=== PATIENT | male | born 1940 | race Hispanic/Latino ===

== ENCOUNTER → 2018-01-03 | Outpatient (CLI) | payer MEDICARE ==
[~2018-01-03] MED LIST: CYCLOBENZAPRINE10 MG PO; DOXAZOSIN MESYLA4 MG PO; FINASTERIDE5 MG PO; FUROSEMIDE20 MG PO; FUROSEMIDE40 MG PO; GABAPENTIN100 MG PO; LANTUS100 UNIT/1 SQ; SODIUM BICARBONATE PO; TYLENOL ARTHRITIS PO; VERAPAMIL HCL120 MG PO
--- NOTE | 2018-01-03 16:02 | Diagnostic Imaging Report ---
TECHNIQUE: Magnetic resonance imaging of the LEFT foot (hindfoot) was performed WITHOUT injected contrast. HISTORY: Diabetes, ulcer, rule out osteomyelitis COMPARISON: Left calcaneal radiographs December 15, 2017. DISCUSSION: Bone: No focal or infiltrative bone marrow replacing abnormality. No acute fracture or osteonecrosis. Small plantar calcaneal and dorsal calcaneal enthesophytes. A 1.3 cm calcaneal intraosseous cyst extending from the adjacent sinus tarsi. A 1.2 cm intraosseous cyst within the distal fibular meta-epiphysis. Joints: High-grade to full-thickness erosion of the medial tibiotalar cartilage. No effusion. Soft Tissues: Dorsal soft tissue defect with moderate regional soft tissue edema. No drainable fluid collection. IMPRESSION: 1. No osteomyelitis. 2. No soft tissue abscess. Signed by: Dr. Aj Morales D.O., M.M.M. on 01/03/2018 3:59 PM
== END ==
LOC: MRI 13:20
PROVIDERS: ATTEND Family Medicine
DX: E11.621 Type 2 diabetes mellitus with foot ulcer (principal)

== ENCOUNTER 2018-01-05 09:58 | Outpatient (RCR) | payer MEDICARE ==
--- NOTE | 2017-12-15 12:13 | Diagnostic Imaging Report ---
PROCEDURE:X-RAY LEFT HEEL COMPARISON:None. INDICATIONS:HEEL PAIN, ULCER FINDINGS: BONES: Normal mineralization. No acute fracture or dislocation. Mild degenerative changes of the tibiotalar and talonavicular joints. No suspicious cortical erosion. SOFT TISSUES:Small plantar calcaneal enthesophyte. Achilles tendon enthesopathy. OTHER:Extensive vascular calcifications. No radiopaque foreign body. CONCLUSION: 1. No acute osseous abnormality. If concern for osteomyelitis, consider further evaluation with MRI examination. 2. Plantar calcaneal enthesophyte. Zenaida Salguero M.D. Dictated by: Zenaida Salguero M.D. on 12/15/2017 at 12:14 Electronically approved by: Zenaida Salguero M.D. on 12/15/2017 at 12:14
[~2018-01-05 09:58] MED LIST changes: +LIDOCAINE VISC 2% SOLN 15 ML UDC ONE
== END 2018-01-08 ==
LOC: WCC 09:58
PROVIDERS: ATTEND Family Medicine
DX: E11.621 Type 2 diabetes mellitus with foot ulcer (principal); E11.22 Type 2 diabetes mellitus with diabetic chronic kidney disease; L97.423 Non-pressure chronic ulcer of left heel and midfoot with necrosis of muscle; I73.89 Other specified peripheral vascular diseases; G90.09 Other idiopathic peripheral autonomic neuropathy; N18.4 Chronic kidney disease, stage 4 (severe); I10 Essential (primary) hypertension; E78.5 Hyperlipidemia, unspecified; Z74.01 Bed confinement status
CPT/HCPCS: 36415; 82948; 87071; 87075; 87186; 87205

== ENCOUNTER → 2018-01-17 | Outpatient (CLI) | payer MEDICARE ==
[~2018-01-17] MED LIST changes: -LIDOCAINE VISC 2% SOLN 15 ML UDC ONE
--- NOTE | 2018-01-17 11:50 | Diagnostic Imaging Report ---
PROCEDURE: Frontal and lateral views of the chest. COMPARISON: None. INDICATIONS: PRE-OPERATIVE FOR CARDIOVASCULAR TEST FINDINGS: Lines/tubes: None. Lungs: The lungs are well inflated and clear. There is no evidence of pneumonia or pulmonary edema. Some mild linear opacities in the left lung base may represent atelectasis or scarring. Pleura: There is no pleural effusion or pneumothorax. Heart and mediastinum: The heart and the mediastinum are normal. Bones: No acute bony abnormality. IMPRESSION: 1. No acute cardiopulmonary disease. Dictated by: Bebo Limon M.D. on 01/17/2018 at 11:51 Electronically approved by: Bebo Limon M.D. on 01/17/2018 at 11:51
== END | disposition home or self-care (01) ==
LOC: RAD 10:52
PROVIDERS: ATTEND Family Medicine
DX: Z01.810 Encounter for preprocedural cardiovascular examination (principal); Z01.811 Encounter for preprocedural respiratory examination; E11.621 Type 2 diabetes mellitus with foot ulcer
CPT/HCPCS: 71046; 93005

== ENCOUNTER → 2018-02-07 | Outpatient (RCR) | payer MEDICARE ==
[~2018-02-07] MED LIST changes: +COLLAGENASE OINTMENT 30 GM TUBE ONE; +LIDOCAINE VISC 2% SOLN 15 ML UDC ONE; +LIDOCAINE/PRILOCAINE 2.5-2.5% KIT ONE; +MUPIROCIN 2% OINT 22 GM TUBE ONE
== END ==
LOC: WCC 01-10 13:00
PROVIDERS: ATTEND Family Medicine
DX: E11.621 Type 2 diabetes mellitus with foot ulcer (principal); E11.22 Type 2 diabetes mellitus with diabetic chronic kidney disease; L97.423 Non-pressure chronic ulcer of left heel and midfoot with necrosis of muscle; Z74.01 Bed confinement status; N18.4 Chronic kidney disease, stage 4 (severe); I10 Essential (primary) hypertension; I73.89 Other specified peripheral vascular diseases; G90.09 Other idiopathic peripheral autonomic neuropathy; E78.5 Hyperlipidemia, unspecified; Z01.810 Encounter for preprocedural cardiovascular examination; Z01.811 Encounter for preprocedural respiratory examination
CPT/HCPCS: 11042 ×2; 36415 ×5; 82948 ×5; 87071; 87075; 87186; 87205; 93923; 97597 ×2; 97602; 99213; G0277 ×4

== ENCOUNTER 2018-03-09 09:46 | Outpatient (RCR) | payer MEDICARE ==
[~2018-03-09 09:46] MED LIST changes: +CADEXOMER IODINE 30 GM TUBE ONE; -LIDOCAINE VISC 2% SOLN 15 ML UDC ONE; -LIDOCAINE/PRILOCAINE 2.5-2.5% KIT ONE
[2018-03-09] MEDS ORDERED: LIDOCAINE VISC 2% SOLN 15 ML UDC ONE (12:12)
== END 2018-03-10 ==
LOC: WCC 09:46
PROVIDERS: ATTEND Family Medicine
DX: E11.621 Type 2 diabetes mellitus with foot ulcer (principal); E11.22 Type 2 diabetes mellitus with diabetic chronic kidney disease; L97.423 Non-pressure chronic ulcer of left heel and midfoot with necrosis of muscle; B96.5 Pseudomonas (aeruginosa) (mallei) (pseudomallei) as the cause of diseases classified elsewhere; N18.4 Chronic kidney disease, stage 4 (severe); I73.89 Other specified peripheral vascular diseases; I10 Essential (primary) hypertension; G90.09 Other idiopathic peripheral autonomic neuropathy; E78.5 Hyperlipidemia, unspecified; Z74.01 Bed confinement status; Z01.810 Encounter for preprocedural cardiovascular examination; Z01.811 Encounter for preprocedural respiratory examination
CPT/HCPCS: 11042; 17250; 36415 ×11; 82948 ×13; 87071; 87075; 87186; 87205; 97597 ×2; 97602 ×6; 99213; G0277 ×16

== ENCOUNTER 2018-04-06 09:06 | Outpatient (RCR) | payer MEDICARE ==
[~2018-04-06 09:06] MED LIST changes: -CADEXOMER IODINE 30 GM TUBE ONE; -COLLAGENASE OINTMENT 30 GM TUBE ONE; +LIDOCAINE/PRILOCAINE 2.5-2.5% KIT ONE; +MINERAL OIL/PETROLAT/GLYCERI 6OZ BTL ONE; -MUPIROCIN 2% OINT 22 GM TUBE ONE
[2018-04-06] MEDS ORDERED: LIDOCAINE/PRILOCAINE 2.5-2.5% KIT ONE (17:03)
== END 2018-04-09 ==
LOC: WCC 09:06
PROVIDERS: ATTEND Family Medicine
DX: E11.621 Type 2 diabetes mellitus with foot ulcer (principal); E11.22 Type 2 diabetes mellitus with diabetic chronic kidney disease; L97.423 Non-pressure chronic ulcer of left heel and midfoot with necrosis of muscle; I73.89 Other specified peripheral vascular diseases; N18.4 Chronic kidney disease, stage 4 (severe); I10 Essential (primary) hypertension; G90.09 Other idiopathic peripheral autonomic neuropathy; E78.5 Hyperlipidemia, unspecified; Z01.810 Encounter for preprocedural cardiovascular examination; Z01.811 Encounter for preprocedural respiratory examination; Z74.01 Bed confinement status
CPT/HCPCS: 11042 ×2; 36415 ×14; 82948 ×14; 97597; 99212; 99213 ×2; G0277 ×19

== ENCOUNTER 2018-05-09 11:54 | Outpatient (RCR) | payer MEDICARE ==
[~2018-05-09 11:54] MED LIST changes: +LIDOCAINE VISC 2% SOLN 15 ML UDC ONE; -LIDOCAINE/PRILOCAINE 2.5-2.5% KIT ONE; +MUPIROCIN 2% OINT 22 GM TUBE ONE
== END 2018-05-10 ==
LOC: WCC 11:54
PROVIDERS: ATTEND Family Medicine
DX: E11.621 Type 2 diabetes mellitus with foot ulcer (principal); E11.22 Type 2 diabetes mellitus with diabetic chronic kidney disease; L97.423 Non-pressure chronic ulcer of left heel and midfoot with necrosis of muscle; G90.09 Other idiopathic peripheral autonomic neuropathy; I73.89 Other specified peripheral vascular diseases; N18.4 Chronic kidney disease, stage 4 (severe); I10 Essential (primary) hypertension; E78.5 Hyperlipidemia, unspecified; Z01.810 Encounter for preprocedural cardiovascular examination; Z01.811 Encounter for preprocedural respiratory examination; Z74.01 Bed confinement status
CPT/HCPCS: 11042; 15275; 36415 ×7; 82948 ×7; 99212 ×2; 99213; G0277 ×8; Q4121

== ENCOUNTER 2018-06-01 08:21 | Outpatient (RCR) | payer MEDICARE ==
[~2018-06-01 08:21] MED LIST changes: -MINERAL OIL/PETROLAT/GLYCERI 6OZ BTL ONE; -MUPIROCIN 2% OINT 22 GM TUBE ONE
[2018-06-01] MEDS ORDERED: LIDOCAINE/PRILOCAINE 2.5-2.5% KIT ONE (11:51)
== END 2018-06-10 ==
LOC: WCC 08:21
PROVIDERS: ATTEND Family Medicine
DX: E11.621 Type 2 diabetes mellitus with foot ulcer (principal); E11.22 Type 2 diabetes mellitus with diabetic chronic kidney disease; L97.423 Non-pressure chronic ulcer of left heel and midfoot with necrosis of muscle; I73.89 Other specified peripheral vascular diseases; N18.4 Chronic kidney disease, stage 4 (severe); I10 Essential (primary) hypertension; G90.09 Other idiopathic peripheral autonomic neuropathy; E78.5 Hyperlipidemia, unspecified; Z01.810 Encounter for preprocedural cardiovascular examination; Z01.811 Encounter for preprocedural respiratory examination; Z74.01 Bed confinement status
CPT/HCPCS: 15275; 36415 ×10; 82948 ×11; 87071; 87075; 87186; 87205; 97597 ×2; G0277 ×12; Q4121

== ENCOUNTER → 2018-06-15 | Outpatient (CLI) | payer MEDICARE ==
[~2018-06-15] MED LIST changes: +COLLAGENASE OINTMENT 30 GM TUBE ONE; -LIDOCAINE VISC 2% SOLN 15 ML UDC ONE; +LIDOCAINE/PRILOCAINE 2.5-2.5% KIT ONE; +MUPIROCIN 2% OINT 22 GM TUBE ONE
== END ==
LOC: WCC 10:00
PROVIDERS: ATTEND Family Medicine
DX: E11.621 Type 2 diabetes mellitus with foot ulcer (principal); E11.22 Type 2 diabetes mellitus with diabetic chronic kidney disease; L97.423 Non-pressure chronic ulcer of left heel and midfoot with necrosis of muscle; G90.09 Other idiopathic peripheral autonomic neuropathy; I73.89 Other specified peripheral vascular diseases; N18.4 Chronic kidney disease, stage 4 (severe); I10 Essential (primary) hypertension; E78.2 Mixed hyperlipidemia; Z01.810 Encounter for preprocedural cardiovascular examination; Z01.811 Encounter for preprocedural respiratory examination; Z74.01 Bed confinement status
CPT/HCPCS: 87071; 87075; 87186; 87205

== ENCOUNTER 2018-06-22 10:19 | Outpatient (RCR) | payer MEDICARE ==
[~2018-06-22 10:19] MED LIST changes: -COLLAGENASE OINTMENT 30 GM TUBE ONE; -LIDOCAINE/PRILOCAINE 2.5-2.5% KIT ONE; -MUPIROCIN 2% OINT 22 GM TUBE ONE
== END 2018-07-10 ==
LOC: WCC 10:19
PROVIDERS: ATTEND Family Medicine
DX: E11.621 Type 2 diabetes mellitus with foot ulcer (principal); E11.22 Type 2 diabetes mellitus with diabetic chronic kidney disease; L97.423 Non-pressure chronic ulcer of left heel and midfoot with necrosis of muscle; I73.89 Other specified peripheral vascular diseases; G90.09 Other idiopathic peripheral autonomic neuropathy; N18.4 Chronic kidney disease, stage 4 (severe); I10 Essential (primary) hypertension; E78.5 Hyperlipidemia, unspecified; Z01.810 Encounter for preprocedural cardiovascular examination; Z01.811 Encounter for preprocedural respiratory examination; Z74.01 Bed confinement status

== ENCOUNTER 2018-08-03 09:12 | Outpatient (RCR) | payer MEDICARE ==
[~2018-08-03 09:12] MED LIST changes: +COLLAGENASE OINTMENT 30 GM TUBE ONE; +LIDOCAINE VISC 2% SOLN 15 ML UDC ONE; +LIDOCAINE/PRILOCAINE 2.5-2.5% KIT ONE; +MUPIROCIN 2% OINT 22 GM TUBE ONE
[2018-08-03] MEDS ORDERED: LIDOCAINE/PRILOCAINE 2.5-2.5% KIT ONE ×2 (13:11→13:15)
== END 2018-08-10 ==
LOC: WCC 09:12
PROVIDERS: ATTEND Family Medicine
DX: E11.621 Type 2 diabetes mellitus with foot ulcer (principal); E11.22 Type 2 diabetes mellitus with diabetic chronic kidney disease; L97.423 Non-pressure chronic ulcer of left heel and midfoot with necrosis of muscle; N18.4 Chronic kidney disease, stage 4 (severe); I10 Essential (primary) hypertension; I73.89 Other specified peripheral vascular diseases; G90.09 Other idiopathic peripheral autonomic neuropathy; E78.5 Hyperlipidemia, unspecified; Z01.810 Encounter for preprocedural cardiovascular examination; Z01.811 Encounter for preprocedural respiratory examination; Z74.01 Bed confinement status

== ENCOUNTER 2018-08-31 08:40 | Outpatient (RCR) | payer MEDICARE ==
[~2018-08-31 08:40] MED LIST changes: -COLLAGENASE OINTMENT 30 GM TUBE ONE; -LIDOCAINE/PRILOCAINE 2.5-2.5% KIT ONE; -MUPIROCIN 2% OINT 22 GM TUBE ONE
[2018-08-31] MEDS ORDERED: LIDOCAINE/PRILOCAINE 2.5-2.5% KIT ONE (13:47)
[2018-08-31] MEDS ORDERED: COLLAGENASE OINTMENT 30 GM TUBE ONE (13:47)
== END 2018-09-09 ==
LOC: WCC 08:40
PROVIDERS: ATTEND Family Medicine
DX: E11.621 Type 2 diabetes mellitus with foot ulcer (principal); E11.22 Type 2 diabetes mellitus with diabetic chronic kidney disease; L97.423 Non-pressure chronic ulcer of left heel and midfoot with necrosis of muscle; G90.09 Other idiopathic peripheral autonomic neuropathy; I73.89 Other specified peripheral vascular diseases; N18.4 Chronic kidney disease, stage 4 (severe); I10 Essential (primary) hypertension; E78.5 Hyperlipidemia, unspecified; Z01.810 Encounter for preprocedural cardiovascular examination; Z01.811 Encounter for preprocedural respiratory examination; Z74.01 Bed confinement status

== ENCOUNTER 2018-09-21 10:23 | Outpatient (RCR) | payer MEDICARE ==
[~2018-09-21 10:23] MED LIST changes: -LIDOCAINE VISC 2% SOLN 15 ML UDC ONE
[2018-09-21] MEDS ORDERED: LIDOCAINE/PRILOCAINE 2.5-2.5% KIT ONE (14:53)
== END 2018-10-10 ==
LOC: WCC 10:23
PROVIDERS: ATTEND Family Medicine
DX: E11.22 Type 2 diabetes mellitus with diabetic chronic kidney disease (principal); E11.621 Type 2 diabetes mellitus with foot ulcer; L97.423 Non-pressure chronic ulcer of left heel and midfoot with necrosis of muscle; I73.89 Other specified peripheral vascular diseases; G90.09 Other idiopathic peripheral autonomic neuropathy; N18.4 Chronic kidney disease, stage 4 (severe); I10 Essential (primary) hypertension; E78.5 Hyperlipidemia, unspecified; Z01.810 Encounter for preprocedural cardiovascular examination; Z01.811 Encounter for preprocedural respiratory examination; Z74.01 Bed confinement status

== ENCOUNTER 2018-10-12 08:44 | Outpatient (RCR) | payer MEDICARE | END 2018-11-10 | LOC: WCC 08:44 | PROVIDERS: ATTEND Family Medicine | DX: E11.22 Type 2 diabetes mellitus with diabetic chronic kidney disease (principal); E11.621 Type 2 diabetes mellitus with foot ulcer; L97.423 Non-pressure chronic ulcer of left heel and midfoot with necrosis of muscle; G90.09 Other idiopathic peripheral autonomic neuropathy; I10 Essential (primary) hypertension; E78.5 Hyperlipidemia, unspecified; I73.89 Other specified peripheral vascular diseases; N18.4 Chronic kidney disease, stage 4 (severe); Z01.810 Encounter for preprocedural cardiovascular examination; Z01.811 Encounter for preprocedural respiratory examination; Z74.01 Bed confinement status ==